=== PATIENT | male | born 1990 | race Caucasian/White ===

== ENCOUNTER 2022-01-18 10:57 | Emergency (ER) | payer OTHER ==
[~2022-01-18] VITALS: Ht 172.7 cm; Wt 97.5 kg
[2022-01-18 11:03] VITALS: BP 141/87
--- NOTE | 2022-01-18 11:08 | NUR ---
PT AMBULATED TO ER BED 6 WITH A STEADY GAIT.
--- NOTE | 2022-01-18 11:13 | NUR ---
33Y/O MALE C/O ABDOMIAL PAIN 4/10 DESCRCIBES CRAMPING AND RADIATES TO RLQ X1DAY. DENIES RX PRIOR TO ARRIVAL. PT DENIES FEVER/CHILLS. DENIES N/V/D. ABD IS SOFT, ROUND, NON-TENDER TO PALPATION, BOWEL SOUNDS ACTIVE X4. DENIES PMH NKA
--- NOTE | 2022-01-18 11:55 | NUR ---
DR. STRANGE AT PT BEDSIDE FOR FURTHER EVALUATION.
--- NOTE | 2022-01-18 12:39 | NUR ---
PT TAKEN TO CT VIA AGUSTIN
--- NOTE | 2022-01-18 12:46 | NUR ---
PT TAKEN TO ER BED 6 VIA JESSICARROSALEE.
[2022-01-18 12:51] LABS: BASOPHILS % (AUTO) 0.5 % (0.0-2.0); EOSINOPHILS # (AUTO) 0.2 K/uL (0-0.4); EOSINOPHILS % (AUTO) 1.8 % (0.0-4.0); HEMATOCRIT 46.7 % (36-52); HEMOGLOBIN 15.9 g/dL (12.0-18.0); LYMPHOCYTES # (AUTO) 2.2 K/uL (2.0-11.5); LYMPHOCYTES % (AUTO) 22.3 % (20.5-51.1); MEAN CORPUSCULAR HEMOGLOBIN 30 pg (27-31); MEAN CORPUSCULAR HGB CONC 34 g/dL (33-37); MEAN CORPUSCULAR VOLUME 87.1 fL (80-94); MONOCYTES # (AUTO) 0.7 K/uL (0.8-1.0); MONOCYTES % (AUTO) 6.8 % (1.7-9.3); NEUTROPHILS # (AUTO) 6.8 K/uL (1.8-7.7); NEUTROPHILS % (AUTO) 68.6 % (42.2-75.2); PLATELET COUNT (AUTO) 238 K/uL (140-450); RED BLOOD CELL COUNT(AUTO) 5.36 MIL/uL (4.20-6.10); RED CELL DISTRIBUTION WIDTH 13.4 % (11.6-13.7); WHITE BLOOD COUNT (AUTO) 9.9 K/uL (4.8-10.8)
--- NOTE | 2022-01-18 13:02 | NUR ---
PT RESTING IN BED, HOB ELEVATED FOR COMFORT, VSS, WILL CONTINUE TO MONITOR.
[2022-01-18 13:03] LABS: ALBUMIN 4.3 g/dL (3.4-5.0); ANION GAP 13.6 (8-16); CARBON DIOXIDE 27.6 mmol/L (21-32); CREATININE 0.8 mg/dL (0.6-1.3); POTASSIUM 4.2 mmol/L (3.5-5.1); TOTAL BILIRUBIN 0.6 mg/dL (0.0-1.0)
[2022-01-18] MEDS ORDERED: NAPR-54 PO (13:52)
[2022-01-18 14:12] VITALS: BP 108/68
--- NOTE | 2022-01-18 14:12 | NUR ---
Patient discharged with v/s stable. Written and verbal after care instructions given FOR ABDOMINAL PAIN and explained. Patient alert, oriented and verbalized understanding of instructions. Ambulatory with steady gait. All questions addressed prior to discharge. ID band removed. Patient advised to follow up with PMD. Rx of NAPROXEN given. Patient educated on indication of medication including possible reaction and side effects. Opportunity to ask questions provided and answered.
== END 2022-01-18 14:12 | disposition home or self-care (01) ==
LOC: MED 10:57
DX: R10.31 Right lower quadrant pain (principal); Z79.899 Other long term (current) drug therapy
CPT/HCPCS: 36415; 74177; 80053; 81002; 85025; 99285; Q9967